=== PATIENT | female | born 1965 | race Caucasian/White ===

== ENCOUNTER 2024-07-06 17:16 | Inpatient (IN) | payer OTHER ==
[~2024-07-06] VITALS: Ht 160 cm; Wt 56.5 kg
[~2024-07-06 17:16] MED LIST: ALBU90OI; ALPR.5; BUTONI; CEPH500 PO; CIME400; CIPR500 PO; CLON1; CLON1 PO; CYCL10 PO; DIPH50; DOXE25; FLUSAL2505; HYDACE5; HYDACE5 PO; LAVAP4L PO; LEVFLO500 PO; LORA1; METO10 PO; NAPR220 PO; NAPR500 PO; NITR100CA PO; OXYACE5T; OXYACE5T PO; OXYACE7.5T PO; PHENA200 PO; PROM25; PROM25 PO; QUET100; QUET100 PO; QUET200; QUET25; RANI150; RXOXYACE PO; RXPHEN200 PO; RXPROM25S PR; SPIHYD; SULTRIDS PO; TRIHYD253B
[2024-07-06] MEDS ORDERED: LORazepam 2 MG/ML 1ML Injection IV ONE (17:25)
[2024-07-06 17:35] LABS: BASOPHILS ABSOLUTE AUTO 0.06 K/mm3 (0.00-0.23); BASOPHILS PERCENT AUTO 0 % (0-2); EOSINOPHILS PERCENT AUTO 5 % (0-6); Hematocrit 41.1 % (33.0-51.0); Hemoglobin 13.6 g/dL (11.5-16.0); IMMATURE GRAN ABSOLUTE AUTO 0.06 K/mm3 (0.00-0.10); IMMATURE GRAN PERCENT AUTO 0 % (0-1); LYMPHOCYTES ABSOLUTE AUTO 2.29 K/mm3 (0.84-5.20); LYMPHOCYTES PERCENT AUTO 16 % (21-46); MONOCYTES ABSOLUTE AUTO 1.26 K/mm3 (0.16-1.47); MONOCYTES PERCENT AUTO 9 % (4-13); Mean Corpuscular HGB 28.3 pg (26.0-34.0); Mean Corpuscular HGB Conc 33.1 g/dL (31.5-36.5); Mean Corpuscular Volume 85 fL (80-100); Mean Platelet Volume 9.1 fL (9.1-12.4); NEUTROPHILS ABSOLUTE AUTO 10.26 K/mm3 (1.96-9.15); NEUTROPHILS PERCENT AUTO 70 % (41-73); Platelet Count 423 K/mm3 (150-400); RDW Coefficient Variation 12.5 % (11.7-14.2); RDW Standard Deviation 39.2 fL (35.1-46.3); Red Blood Cell Count 4.81 M/mm3 (3.80-5.20); White Blood Cell Count 14.63 K/mm3 (4.00-11.30)
[2024-07-06 17:50] LABS: International Normalized Ratio 1.07; Prothrombin Time Results 11.4 Sec (9.7-11.5)
[2024-07-06 18:18] LABS: Albumin, Blood 3.2 g/dL (3.4-5.0); Albumin/Globulin Ratio 0.9 (0.8-1.8); Bilirubin, Total 0.3 mg/dL (0.1-1.0); Bun/Creatinine Ratio 24.1 (12.0-20.0); Calcium, Blood 9.3 mg/dL (8.5-10.1); Creatinine, Blood 0.66 mg/dL (0.40-1.00); Globulin, Blood 3.7 g/dL (2.2-4.0); Magnesium, Blood 1.9 mg/dL (1.6-2.4); Total Protein, Blood 6.9 g/dL (6.4-8.2)
[2024-07-06] MEDS ORDERED: Lactated Ringer's 1,000 ML IV ONE (18:25)
[2024-07-06 18:41] LABS: CORONAVIRUS COVID-19 AG Negative (NEGATIVE); INFLUENZA A AG Negative (NEGATIVE); INFLUENZA B AG Negative (NEGATIVE)
[2024-07-06] MEDS ORDERED: NS 1,000 ML IV SCH (21:15)
[2024-07-06] MEDS ORDERED: Ondansetron HCl 2 MG / ML 2ML Vial IV PRN (21:15)
[2024-07-06 21:44] LABS: Source, Urine Clean Catch
[2024-07-06 21:57] LABS: Appearance, Urine Clear (Clear); Bilirubin, Urine Neg (Neg); Blood, Urine 3+ (Neg); Color, Urine Yellow (P-Yellow); Glucose Qualitative, Urine Neg (Neg); Ketones, Urine 2+ (Neg); Leukocyte Esterase, Urine Neg (Neg); Nitrite, Urine Pos (Neg); Protein, Urine 2+ (Neg); Specific Gravity, Urine 1.015 (1.003-1.022); Urobilinogen, Urine 2+ (Normal); pH, Urine 6.5 (5.0-8.0)
[2024-07-06] MEDS ORDERED: Aspirin 325 MG Tab PO ONE (22:00)
[2024-07-06 22:08] LABS: Amorphous Light (0-Heavy); Bacteria Many /hpf; Calcium Oxalate Crystals Many /hpf; Red Blood Cells, Urine 0-2 /hpf (0-2); Squamous Epithelial Cells Many /hpf (Few); White Blood Cells, Urine 0-2 /hpf (0-5)
[2024-07-06 22:26] LABS: U Amphetamine Screen Not Detected; U Barbituate Screen Not Detected; U Benzodiazapine Screen Not Detected; U Buprenorphine Screen Not Detected; U Cannabinoids Screen Not Detected; U Cocaine Screen Not Detected; U Methadone Screen Not Detected; U Methamphetamine Screen Not Detected; U Opiates Screen Not Detected; U Oxycodone Screen Not Detected; U Phencyclidine Screen Not Detected
[2024-07-07 02:57] VITALS: BP 143/68
[2024-07-07 05:45] LABS: BASOPHILS ABSOLUTE AUTO 0.04 K/mm3 (0.00-0.23); BASOPHILS PERCENT AUTO 0 % (0-2); EOSINOPHILS ABSOLUTE AUTO 0.68 K/mm3 (0.00-0.68); EOSINOPHILS PERCENT AUTO 6 % (0-6); Hematocrit 37.5 % (33.0-51.0); Hemoglobin 12.2 g/dL (11.5-16.0); IMMATURE GRAN ABSOLUTE AUTO 0.03 K/mm3 (0.00-0.10); IMMATURE GRAN PERCENT AUTO 0 % (0-1); LYMPHOCYTES PERCENT AUTO 24 % (21-46); MONOCYTES ABSOLUTE AUTO 1.06 K/mm3 (0.16-1.47); MONOCYTES PERCENT AUTO 10 % (4-13); Mean Corpuscular HGB 28.4 pg (26.0-34.0); Mean Corpuscular HGB Conc 32.5 g/dL (31.5-36.5); Mean Corpuscular Volume 87 fL (80-100); Mean Platelet Volume 9.4 fL (9.1-12.4); NEUTROPHILS ABSOLUTE AUTO 6.43 K/mm3 (1.96-9.15); NEUTROPHILS PERCENT AUTO 59 % (41-73); Platelet Count 356 K/mm3 (150-400); RDW Coefficient Variation 12.9 % (11.7-14.2); White Blood Cell Count 10.84 K/mm3 (4.00-11.30)
[2024-07-07 06:10] LABS: Albumin, Blood 2.7 g/dL (3.4-5.0); Albumin/Globulin Ratio 0.9 (0.8-1.8); Bilirubin, Total 0.3 mg/dL (0.1-1.0); Bun/Creatinine Ratio 22.6 (12.0-20.0); Calcium, Blood 8.5 mg/dL (8.5-10.1); Creatinine, Blood 0.53 mg/dL (0.40-1.00); Globulin, Blood 3.1 g/dL (2.2-4.0); Potassium, Blood 3.2 mmol/L (3.5-5.5); Total Protein, Blood 5.8 g/dL (6.4-8.2)
[2024-07-07 07:16] VITALS: BP 135/72
[2024-07-07] MEDS ORDERED: Insulin Human Lispro 100 Units/ML 3ML Syringe SC SCH ×2 (07:30)
--- NOTE | 2024-07-07 07:32 | NUR ---
SHIFT SUMMARY; PATIENT SLEPT IN LONG INTERVALS.AFTER ADMIT. REMAINED IN BED, PUREWICK WORKED WELL, NO BM, C/O BEING HUNGRY ABLE TO SWALLOW FED TWICE.IV INFILTRAED AND HAD TO BE RESTARTED. TELE ST 102.
[2024-07-07] MEDS ORDERED: Aspirin 81 MG Chew PO SCH (09:00)
[2024-07-07] MEDS ORDERED: Enoxaparin 40 MG/0.4 ML SYR SC SCH (09:00)
[2024-07-07] MEDS ORDERED: Nicotine 21 MG PATCH TOP SCH (10:00)
[2024-07-07] MEDS ORDERED: Potassium Chloride 20 MEQ TabCR PO ONE (10:00)
[2024-07-07 11:51] VITALS: BP 180/106
[2024-07-07] MEDS ORDERED: OxyCODONE 5 mg/Acetamin 325 mg TABLET PO STA (12:50)
[2024-07-07] MEDS ORDERED: OxyCODONE 5 mg/Acetamin 325 mg TABLET PO PRN (13:00)
[2024-07-07] MEDS ORDERED: dexAMETHasone 4 MG TAB PO SCH (13:00)
--- NOTE | 2024-07-07 13:46 | NUR ---
PALLIATIVE CARE VISIT: CALL RECEIVED FROM DR. MARCELO REQUESTING TO SEE PT TO DISCUSS HOSPICE SERVICES. MET WITH PT AND DAUGHTERS IN THE ROOM. PT REPORTS "I JUST WANT TO LEAVE AND GO HOME". DISCUSSED HOSPICE CHOICES. PT WANTS TO GO HOME [facility] AND WILL ADMIT TO WHICHEVER AGANCY CAN ADMIT THE SOONEST. PT DENIES NEEDS FOR MEDICAL EQUIPMENT AT THIS TIME. SHE WILL GO TO LIVE WITH HER DAUGHTER WHO LIVES IN [place]. UPDATED CM1 WITH PT REQUEST. HOSPICE REFERRAL PLACED. COORDINATED DISCHARGE MEDS WITH DR. MARCELO.
[2024-07-07] MEDS ORDERED: Percocet 5-3251 EACH PO (14:16)
[2024-07-07] MEDS ORDERED: DECADRON4 M1 PO (14:16)
[2024-07-07] MEDS ORDERED: DIAZ5 PR (14:18)
[2024-07-07] MEDS ORDERED: Ativan1 MG PO (14:19)
--- NOTE | 2024-07-07 15:51 | NUR ---
PT DISCHARGED AT 1430 WITH FAMILY TO TRANSPORT. HOSPICE WAS ARRANGED AND MICHAEL BROUGHT UP FOOD FOR FAMILY TO TAKE HOME PRIOR TO DC. PT TREATED FOR PAIN PER EMAR. PERSONAL ITEMS COLLECTED AND PT TRANSPORTED DOWN IN WHEEL CHAIR.
== END 2024-07-07 14:29 | disposition hospice, home (50) | DRG 55 ==
LOC: ER 17:16 → ERHOLD 21:13 → MEDS 21:13
PROVIDERS: Nurse Practitioner Acute Care; Student in an Organized Health Care Education/Training Program; ADMIT Internal Medicine
DX: C79.31 Secondary malignant neoplasm of brain (principal); C17.9 Malignant neoplasm of small intestine, unspecified; C77.0 Secondary and unspecified malignant neoplasm of lymph nodes of head, face and neck; C79.71 Secondary malignant neoplasm of right adrenal gland; C77.2 Secondary and unspecified malignant neoplasm of intra-abdominal lymph nodes; C77.1 Secondary and unspecified malignant neoplasm of intrathoracic lymph nodes; R82.71 Bacteriuria; Z66 Do not resuscitate; E87.6 Hypokalemia; I10 Essential (primary) hypertension; M79.7 Fibromyalgia; I25.10 Atherosclerotic heart disease of native coronary artery without angina pectoris; R73.03 Prediabetes; G43.909 Migraine, unspecified, not intractable, without status migrainosus; R91.1 Solitary pulmonary nodule; G89.29 Other chronic pain; M54.9 Dorsalgia, unspecified; F17.210 Nicotine dependence, cigarettes, uncomplicated; D72.829 Elevated white blood cell count, unspecified; F15.90 Other stimulant use, unspecified, uncomplicated; Z88.0 Allergy status to penicillin; Z88.8 Allergy status to other drugs, medicaments and biological substances; Z88.5 Allergy status to narcotic agent; Z79.891 Long term (current) use of opiate analgesic; I25.2 Old myocardial infarction; Z88.6 Allergy status to analgesic agent; Z91.199 Patient's noncompliance with other medical treatment and regimen due to unspecified reason; Z71.51 Drug abuse counseling and surveillance of drug abuser
CPT/HCPCS: 36415; 70450; 70496; 70498; 70551; 71045; 71260; 74177; 80053; 81001; 82947; 83605; 83735; 83880; 84145; 84484; 85025; 85610; 85730; 87077; 87086; 87186; 87428-QW; 92610; 96361; 96374-59; 97112; 97162; 97165; 97530; 97535; 99285-25; A6590; A9270; J1650; J2060; J7030; J7120; Q9967